=== PATIENT | female | born 1970 | race Caucasian/White ===

== ENCOUNTER 2016-12-04 21:38 | Observation (INO) | payer MEDICAID ==
[~2016-12-04] VITALS: Ht 170.2 cm; Wt 135.9 kg
[~2016-12-04 21:38] MED LIST: HYDR-3533 PO; PROT40TA PO; ZOFR4TAB3 SL
[2016-12-04 21:52] VITALS: BP 111/69; PULSE 107; RESP 22; TEMP 98; O2SAT 98
[2016-12-04 21:59] VITALS: BP_SYST 111; BP_SYST 148; BP_DIAS 69; BP_DIAS 82; PULSE 101; RESP 22; O2SAT 98
[2016-12-04] MEDS ORDERED: SODIUM CHLORIDE 0.9% FLUSH 5 ML FLUSH IVF PRN (22:00)
[2016-12-04] MEDS ORDERED: ONDANSETRON HCL 4 MG/2 ML VIAL IV PUSH ONE ×2 (22:00→22:45)
[2016-12-04 22:02] VITALS: BP 132/90; PULSE 94; RESP 22; O2SAT 98
[2016-12-04 22:10] LABS: BASOPHIL # 0.2 TH/MM3 (0-0.2); BASOPHIL % 1.6 % (0.0-2.0); EOSINOPHIL # 0.4 TH/MM3 (0-0.4); HEMATOCRIT 39.5 % (35.0-46.0); LYMPH % 26.5 % (9.0-44.0); LYMPHOCYTE # 3.3 TH/MM3 (1.0-4.8); MEAN CELL VOLUME 85.7 FL (80.0-100.0); MEAN CORPUSCULAR HEMOGLOBIN 28.3 PG (27.0-34.0); MONO % 5.9 % (0.0-8.0); PLATELET COUNT 550 TH/MM3 (150-450); RED BLOOD COUNT 4.61 MIL/MM3 (4.00-5.30); RED CELL DISTRIBUTION WIDTH 13.6 % (11.6-17.2); WHITE BLOOD COUNT 12.6 TH/MM3 (4.0-11.0)
[2016-12-04] MEDS: NITROGLYCERIN 0.4 MG SL 25 TABS/BTL SL SCH ×3 (22:10→22:23)
[2016-12-04] MEDS: SODIUM CHLOR 0.9% 1000 ML INJ 1,000 ML IV SCH (22:14)
[2016-12-04] MEDS ORDERED: ASPIRIN 81 MG CHEW TAB CHEW ONE (22:15)
[2016-12-04 22:22] LABS: CHLORIDE 105 MEQ/L (98-107); SODIUM (NA) 141 MEQ/L (136-145)
[2016-12-04 22:26] LABS: ANION GAP 8 MEQ/L (5-15); BICARBONATE 27.6 MEQ/L (21.0-32.0); MAGNESIUM 1.9 MG/DL (1.5-2.5)
[2016-12-04 22:27] VITALS: BP 142/73; PULSE 104; RESP 20; O2SAT 99
[2016-12-04 22:27] LABS: APTT (PATIENT) 27.1 SEC (24.3-30.1); BLOOD UREA NITROGEN 11 MG/DL (7-18); INTERNATIONAL NORMALIZED RATIO 0.9 RATIO; PROTHROMBIN TIME - PATIENT 10.2 SEC (9.8-11.6)
[2016-12-04 22:28] LABS: HEMO FLAGS DIFF FINAL
[2016-12-04 22:29] LABS: ALT (GPT) 17 U/L (10-53); AST (GOT) 14 U/L (15-37); GLOMERULAR FILTRATION RATE 89 ML/MIN (>89)
[2016-12-04 22:31] LABS: TOTAL BILIRUBIN ADULT 0.2 MG/DL (0.2-1.0)
[2016-12-04 22:32] LABS: ALKALINE PHOSPHATASE 120 U/L (45-117)
[2016-12-04 22:38] LABS: CREATINE KINASE 48 U/L (26-192); POTASSIUM 3.8 MEQ/L (3.5-5.1)
[2016-12-04] MEDS ORDERED: PANTOPRAZOLE SODIUM 40 MG VIAL IV PUSH ONE (22:45)
[2016-12-04] MEDS ORDERED: HYDROmorphone HCL PF 1 MG/ML VIAL IV PUSH ONE (22:45)
[2016-12-04 23:00] VITALS: BP 132/74; PULSE 94; RESP 20; O2SAT 99
[2016-12-04 23:28] VITALS: BP 129/70; PULSE 88; RESP 20; O2SAT 97
[2016-12-04] MEDS ORDERED: IOHEXOL 350 MG/ML 10 ML VIAL (for RAD DIAG) IV ONE (23:53)
[2016-12-05] VITALS (10 sets, daily range): BP systolic 121–139; BP diastolic 61–77; PULSE 72–88; RESP 16–20; TEMP 97.6; O2SAT 95–99
--- NOTE | 2016-12-05 00:11 | RADHPO ---
EXAM DATE/TIME: 12/04/2016 23:21 [facility] COMPARISON: No previous studies available for comparison. INDICATIONS : Chest pain / short of breath. MEDICAL HISTORY : None. SURGICAL HISTORY : Tubal ligation. section. ENCOUNTER: Initial ACUITY: 1 day PAIN SCORE: 7/10 LOCATION: Bilateral chest FINDINGS: The cardiac silhouette is enlarged in transverse diameter. The lungs are free of acute parenchymal op acity. No effusions are identified. Osseous structures are intact. CONCLUSION: Cardiomegaly. No acute cardiopulmonary disease. Rodriguez Singh MD on December 05, 2016 at 0:09 Board Certified Radiologist. This report was verified electronically.
--- NOTE | 2016-12-05 00:28 | RADHPO ---
EXAM DATE/TIME: 12/04/2016 23:53 [facility] COMPARISON: No previous studies available for comparison. INDICATIONS : Chest pain with shortness of breath. IV CONTRAST: 100 cc Omnipaque 350 (iohexol) IV ; Cumulative dose for multiple exams. RADIATION DOSE: 25.46 CTDIvol (mGy) MEDICAL HISTORY : Hypertension. SURGICAL HISTORY : None. ENCOUNTER: Initial ACUITY: 1 day PAIN SCALE: 5/10 LOCATION: chest TECHNIQUE: Volumetric scanning of the chest was performed using a pulmonary embolism protocol MIP images were re constructed. Using automated exposure control and adjustment of the mA and/or kV according to patien t size, radiation dose was kept as low as reasonably achievable to obtain optimal diagnostic quality images. FINDINGS: Examination of the pulmonary vasculature demonstrates good filling of the main, lobar and segmental b ranches. There are no filling defects to suggest pulmonary embolism. Multiplanar reconstructions are also unremarkable. Examination of the lung mcguire demonstrates no evidence of pulmonary nodule. No pleural fluid is iden tified. Examination of the mediastinum demonstrates no abnormally enlarged lymph nodes by CT criteria . No axillary or hilar abnormalities are identified. Coronary artery calcifications are not present. CONCLUSION: 1. No evidence of pulmonary embolism. Rodriguez Singh MD on December 05, 2016 at 0:24 Board Certified Radiologist. This report was verified electronically.
--- NOTE | 2016-12-05 00:39 | RADHPO ---
EXAM DATE/TIME: 12/04/2016 23:53 [facility] COMPARISON: No previous studies available for comparison. INDICATIONS : Right upper quadrant pain. IV CONTRAST: 100 cc Omnipaque 350 (iohexol) IV ; Cumulative dose for multiple exams. ORAL CONTRAST: No oral contrast ingested. RADIATION DOSE: 24.7 CTDIvol (mGy) MEDICAL HISTORY : None SURGICAL HISTORY : Tubal ligation. Right hip replacement. ENCOUNTER: Initial ACUITY: 1 day PAIN SCALE: 7/10 LOCATION: Right upper quadrant TECHNIQUE: Volumetric scanning of the abdomen and pelvis was performed. Using automated exposure control and ad justment of the mA and/or kV according to patient size, radiation dose was kept as low as reasonably achievable to obtain optimal diagnostic quality images. FINDINGS: Examination of the lung bases demonstrates no abnormality. No pleural fluid is identified. No pulmona ry nodules are present. There is eventration of the right hemidiaphragm. The liver and spleen are nor mal in size and no focal defects are identified. The gallbladder and pancreas are unremarkable. No in trahepatic or extrahepatic ductal dilatation is seen. The adrenal glands and kidneys appear normal bi laterally. No hydronephrosis or mass lesions are identified. No abnormally enlarged lymph nodes are i dentified. Examination of the pelvis demonstrates no evidence of free fluid or pelvic mass. No abnormally enlarg ed inguinal or retroperitoneal lymph nodes are present. The bladder is unremarkable. CONCLUSION: 1. No evidence of acute abdominal or pelvic process. No masses are identified. Rodriguez Singh MD on December 05, 2016 at 0:31 Board Certified Radiologist. This report was verified electronically.
[2016-12-05] MEDS ORDERED: METOCLOPRAMIDE HCL 10 MG/2 ML VIAL IV PUSH ONE (00:45)
[2016-12-05] MEDS: SODIUM CHLOR 0.9% 1000 ML INJ 1,000 ML IV SCH (00:54)
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
[2016-12-05] MEDS ORDERED: NITROGLYCERIN 0.4 MG SL 25 TABS/BTL SL PRN (01:15)
[2016-12-05] MEDS ORDERED: ONDANSETRON HCL 4 MG/2 ML VIAL IV PRN (01:15)
[2016-12-05] MEDS ORDERED: MORPHINE SULFATE 4 MG/ML INJ IV PRN (01:15)
[2016-12-05] MEDS ORDERED: ALPRAZolam 0.25 MG TAB PO PRN (01:15)
[2016-12-05] MEDS ORDERED: SODIUM CHLORIDE 0.9% FLUSH 5 ML FLUSH IVF PRN ×2 (01:15)
[2016-12-05 03:34] LABS: CREATINE KINASE 23 U/L (26-192)
[2016-12-05 05:46] LABS: CREATINE KINASE 23 U/L (26-192)
[2016-12-05 08:05] LABS: AUTOMATED NEUTROPHIL # 9.1 TH/MM3 (1.8-7.7); BASOPHIL % 0.4 % (0.0-2.0); EOSINOPHIL # 0.1 TH/MM3 (0-0.4); EOSINOPHIL % 0.5 % (0.0-4.0); HEMATOCRIT 36.1 % (35.0-46.0); HEMO FLAGS DIFF FINAL; LYMPH % 16.5 % (9.0-44.0); LYMPHOCYTE # 1.9 TH/MM3 (1.0-4.8); MEAN CELL VOLUME 85.9 FL (80.0-100.0); MEAN CORPUSCULAR HEMOGLOBIN 27.9 PG (27.0-34.0); MEAN CORPUSCULAR HGB CONC 32.5 % (32.0-36.0); MONO % 3.9 % (0.0-8.0); NEUT % 78.7 % (16.0-70.0); PLATELET COUNT 498 TH/MM3 (150-450); WHITE BLOOD COUNT 11.5 TH/MM3 (4.0-11.0)
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
[2016-12-05 08:21] LABS: BETA HCG QUANT LESS THAN 1 MIU/ML (0-5)
[2016-12-05] MEDS ORDERED: PANTOPRAZOLE SOD 40 MG DELAYED RELEASE TAB PO SCH (09:00)
[2016-12-05] MEDS ORDERED: SODIUM CHLORIDE 0.9% FLUSH 5 ML FLUSH IVF SCH ×2 (09:00)
[2016-12-05] MEDS ORDERED: REGADENOSON INJ 0.4 MG/5 ML SYR IV ONE (10:05)
--- NOTE | 2016-12-05 11:31 | RADHPO ---
EXAM DATE/TIME: 12/05/2016 10:25 [facility] COMPARISON: CHEST SINGLE AP, December 04, 2016, 23:21. INDICATIONS : Susbternal chest pain with dyspnea and nausea. Angina. Abnormal EKG. DOSE: 35 mCi Tc99m Myoview at stress. 11 mCi Tc99m Myoview at rest. 0.4 mg Lexiscan STRESS SYMPTOMS: Nausea and heart racing. EJECTION FRACTION: 52% MEDICAL HISTORY : Cardiomegaly. SURGICAL HISTORY : Tubal ligation. section. Right hip replacement. ENCOUNTER: Initial ACUITY: 1 day PAIN SCALE: 6/10 LOCATION: Substernal chest TECHNIQUE: The patient underwent pharmacologic stress with infusion of prescribed dose. Continuous ECG tracing was monitored during stress. Gated SPECT imaging was performed after stress and conventional SPECT i maging was performed at rest. The examination was performed on a SPECT/CT scanner, both attenuation and non-corrected datasets were reviewed. FINDINGS: DISTRIBUTION: The maximum perfused segment at stress is in the anterior wall. PERFUSION STUDY: The pattern of perfusion at stress is within normal limits. GATED STUDY: There is intact wall motion and thickening without hypokinetic or dyskinetic segments. CONCLUSION: 1. No fixed or reversible defects to suggest ischemia or infarction. 2. Normal wall motion and calculated ejection fraction. RISK CATEGORY: Low (<1% Annual Mortality Rate) Edmond Arthur MD on December 05, 2016 at 11:25 Board Certified Radiologist. This report was verified electronically.
--- NOTE | 2016-12-05 13:27 | HHI.DCPOC ---
Discharge Care Plan Diagnosis: (1) Chest pain (2) Abdominal pain (3) Leukocytosis Your Health Problems Are: Chest Pain Goals to Promote Your Health * To prevent worsening of your condition and complications * To maintain your health at the optimal level Directions to Meet Your Goals Take your medications as prescribed Follow your dietary instruction Follow activity as directed Keep your appointments as scheduled Take your immunizations and boosters as scheduled If your symptoms worsen call your PCP, if no PCP go to Urgent Care Center or Emergency Room Smoking is Dangerous to Your Health. Avoid second hand smoke Call the 24-hour hour crisis hotline for domestic abuse at Ciera Jacobs Dec 05, 2016 13:27
--- NOTE | 2016-12-05 15:43 | TR ---
Date Performed: 12/05/2016 Time Performed: 10:29:26 DOCTOR: Rodriguez Hernandez DRUG LIST: CLINICAL HISTORY: CHEST PAIN REASON FOR TEST: Chest pain. REASON FOR ENDING: OBSERVATION: CONCLUSION: Lexiscan stress test was performed under standard four minute protocol. Radionuclid e was injected one minute prior to ending the test. No electrocardiographic abormalities were present to suggest ischemia. Nuclear imaging and interpretation are pending. COMMENTS:
[2016-12-05] MEDS ORDERED: INFLUENZA VIRUS VACCINE (QUADRIVALENT) 0.5 ML SYR IM ONE (16:00)
[2016-12-05] MEDS ORDERED: PNEUMOCOCCAL POLYVALENT INJ 25 MCG/0.5 ML SYR IM ONE (16:00)
--- NOTE | 2016-12-06 08:17 | EKG ---
Date Performed: 12/04/2016 Time Performed: 21:44:20 PTAGE: 46 years EKG: Sinus tachycardia Leftward axis Left ventricular hypertrophy by voltage only Nonspecific an terior T wave changes Abnormal ECG NO PREVIOUS TRACING DOCTOR: Rodriguez Hernandez Interpretating Date/Time 12/06/2016 08:15:15
--- NOTE | 2016-12-06 08:17 | EKG ---
Date Performed: 12/04/2016 Time Performed: 23:44:42 PTAGE: 46 years EKG: Sinus rhythm Leftward axis Left ventricular hypertrophy by voltage only Compared to previous tracing, nonspecific T wave changes have resolved. Abnormal ECG PREVIOUS TRACING : 12/04/2016 21.44.20 DOCTOR: Rodriguez Hernandez Interpretating Date/Time 12/06/2016 08:15:42
--- NOTE | 2016-12-06 08:36 | EKG ---
Date Performed: 12/05/2016 Time Performed: 01:19:52 PTAGE: 46 years EKG: Sinus rhythm Leftward axis Left ventricular hypertrophy by voltage only Abnormal ECG PREVIOUS TRACING : 12/04/2016 23.44 Compared to prior tracing no significant change DOCTOR: Rodriguez Hernandez Interpretating Date/Time 12/06/2016 08:35:16
--- NOTE | 2016-12-06 08:36 | EKG ---
Date Performed: 12/05/2016 Time Performed: 04:52:50 PTAGE: 46 years EKG: Sinus rhythm Leftward axis Left ventricular hypertrophy by voltage only Inferior T wave changes are nonspecific A bnormal ECG PREVIOUS TRACING : 12/05/2016 01.19 Compared to prior tracing no significant change DOCTOR: Rodriguez Hernandez Interpretating Date/Time 12/06/2016 08:35:08
== END 2016-12-05 16:20 | disposition home or self-care (01) ==
LOC: PHED 21:38 → PHEDA 12-05 01:05 → PHICU 12-05 05:22 → PH3A 12-05 09:02
PROVIDERS: ADMIT Family Medicine; ATTEND Family Medicine
DX: R07.9 Chest pain, unspecified (principal); R00.0 Tachycardia, unspecified; I51.7 Cardiomegaly; D72.829 Elevated white blood cell count, unspecified; R94.31 Abnormal electrocardiogram [ECG] [EKG]; Z78.0 Asymptomatic menopausal state; Z96.641 Presence of right artificial hip joint; Z23 Encounter for immunization
CPT/HCPCS: 71010; 71275; 74177; 78452; 80053; 82550; 83690; 83735; 84484; 84702; 85025; 85379; 85610; 85730; 90471; 90686; 90732; 93005; 93017; 96374; 96375; 96376; 99285; A9502; C9113; G0378; J1170; J2270; J2405; J2765; J2785; J7030; Q9967; G0008; G0009; Q2038

== ENCOUNTER 2017-09-28 18:39 | Emergency (ER) | payer MEDICAID ==
[~2017-09-28] VITALS: Ht 170.2 cm; Wt 138.0 kg
[2017-09-28 18:42] VITALS: BP_SYST 137; BP_SYST 148; BP_DIAS 79; BP_DIAS 87; PULSE 102; PULSE 107; RESP 16; TEMP 98.5; TEMP 98.6; O2SAT 100; O2SAT 95
[2017-09-28] MEDS ORDERED: SODIUM CHLORIDE 0.9% FLUSH 10 ML FLUSH IV FLUSH PRN (19:15)
[2017-09-28] MEDS ORDERED: ONDANSETRON HCL 4 MG/2 ML VIAL IV PUSH ONE (19:15)
[2017-09-28] MEDS ORDERED: MORPHINE SULFATE 4 MG/ML INJ IV ONE (19:15)
--- NOTE | 2017-09-28 19:17 | PD ---
HPI . Abdominal pain Chief Complaint: Abdominal Pain Time Seen by Provider: 19:14 Travel History International Travel<30 days: No Contact w/Intl Traveler<30days: No Traveled to known affect area: No History of Present Illness HPI Has presents with chief complaint of right lower quadrant abdominal pain. Onset was yesterday. Pain is exacerbated by coughing and laughing. Pain is rated 8/10. She reports nausea for the last 3 days. She also reports poor appetite. She denies any urinary tract symptoms. PFSH Past Medical History Heart Rhythm Problems: No Cardiac Catheterization: No Cardiovascular Problems: Yes (chest pain) High Cholesterol: No Congestive Heart Failure: No Diabetes: No Diminished Hearing: No ?: Not LMP: 09/16/17 Tubal Ligation: Yes (2000 X2) Past Surgical History Section: Yes (1997, 2000) Coronary Artery Bypass Graft: No Genitourinary Surgery: Yes (URETHRA STRETCHED CHILD) Joint Replacement: Yes (RIGHT HIP REPLACEMENT) Social History Alcohol Use: No Tobacco Use: No Substance Use: No Allergies-Medications (Allergen,Severity, Reaction): Coded Allergies: Sulfa (Sulfonamide Antibiotics) (Unverified Allergy, Mild, HOT,HIVES, WEAKNESS,SOB, 09/28/17) shellfish derived (Unverified Allergy, Mild, HOT,HIVES, 09/28/17) pt decline this allergy HAD CT WITH IV CONTRAST AND HAD NO PROBLEM Reported Meds & Prescriptions Reported Meds & Active Scripts Active No Active Prescriptions or Reported Medications Review of Systems Except as stated in HPI: all other systems reviewed are Neg General / Constitutional: No: Fever, Chills Gastrointestinal: Positive: Nausea, Abdominal Pain, No: Vomiting, Diarrhea, Constipation Genitourinary: No: Urgency, Frequency, Dysuria Physical Exam Narrative GENERAL: Awake and alert. She is in no distress. SKIN: warm/dry. HEAD: Normocephalic. EYES: Pupils equal and round. No scleral icterus. No injection or drainage. ENT: No nasal bleeding or discharge. Mucous membranes pink and moist. NECK: Trachea midline. Full range of motion without pain.. CARDIOVASCULAR: Regular rate and rhythm. RESPIRATORY: No accessory muscle use. Clear to auscultation. Breath sounds equal bilaterally. GASTROINTESTINAL: Abdomen soft. Right lower quadrant tenderness. Bowel sounds present. Nondistended. MUSCULOSKELETAL: No obvious deformities. NEUROLOGICAL: Awake and alert. No obvious cranial nerve deficits. Motor grossly within normal limits. Normal speech. PSYCHIATRIC: Appropriate mood and affect; insight and judgment normal. Data Data Last Documented VS Vital Signs Date Time Temp Pulse Resp B/P (MAP) Pulse Ox O2 Delivery O2 Flow Rate FiO2 09/28/17 20:46 16 09/28/17 19:40 97 Room Air 09/28/17 18:42 98.5 102 148/87 (107) Orders Orders Basic Metabolic Panel (Bmp) (09/28/17 19:14) Complete Blood Count With Diff (09/28/17 19:14) Urinalysis - C+S If Indicated (09/28/17 19:14) Ct Abd/Pel W Iv Contrast(Rout) (09/28/17 19:14) Iv Access Insert/Monitor (09/28/17 19:14) Ecg Monitoring (09/28/17 19:14) Oximetry (09/28/17 19:14) Sodium Chloride 0.9% Flush (Ns Flush) (09/28/17 19:15) Ed Urine Pregnancytest Poc (09/28/17 19:14) Morphine Inj (Morphine Inj) (09/28/17 19:15) Ondansetron Inj (Zofran Inj) (09/28/17 19:15) Cath For Specimen (09/28/17 19:19) Iohexol 350 Inj (Omnipaque 350 Inj) (09/28/17 20:54) Hepatic Functional Panel (09/28/17 19:50) Lipase (09/28/17 19:50) Labs Laboratory Tests Test 09/28/17 19:50 White Blood Count 15.5 TH/MM3 Red Blood Count 4.58 MIL/MM3 Hemoglobin 13.0 GM/DL Hematocrit 38.7 % Mean Corpuscular Volume 84.4 FL Mean Corpuscular Hemoglobin 28.4 PG Mean Corpuscular Hemoglobin Concent 33.6 % Red Cell Distribution Width 13.4 % Platelet Count 498 TH/MM3 Mean Platelet Volume 7.9 FL Neutrophils (%) (Auto) 79.6 % Lymphocytes (%) (Auto) 13.4 % Monocytes (%) (Auto) 4.3 % Eosinophils (%) (Auto) 0.9 % Basophils (%) (Auto) 1.8 % Neutrophils # (Auto) 12.3 TH/MM3 Lymphocytes # (Auto) 2.1 TH/MM3 Monocytes # (Auto) 0.7 TH/MM3 Eosinophils # (Auto) 0.1 TH/MM3 Basophils # (Auto) 0.3 TH/MM3 CBC Comment DIFF FINAL Differential Comment Urine Color YELLOW Urine Turbidity CLEAR Urine pH 7.0 Urine Specific [place] 1.018 Urine Protein NEG mg/dL Urine Glucose (UA) NEG mg/dL Urine Ketones NEG mg/dL Urine Occult Blood LARGE Urine Nitrite NEG Urine Bilirubin NEG Urine Leukocyte Esterase NEG Urine RBC 50-99 /hpf Urine WBC 0-2 /hpf Urine Squamous Epithelial Cells 0-5 /hpf Urine Bacteria NONE /hpf Microscopic Urinalysis Comment CULT NOT INDICATED Blood Urea Nitrogen 13 MG/DL Creatinine 0.75 MG/DL Random Glucose 99 MG/DL Total Protein 8.1 GM/DL Albumin 3.4 GM/DL Calcium Level 8.9 MG/DL Alkaline Phosphatase 115 U/L Aspartate Amino Transf (AST/SGOT) 12 U/L Alanine Aminotransferase (ALT/SGPT) 20 U/L Total Bilirubin 0.3 MG/DL Direct Bilirubin 0.1 MG/DL Sodium Level 136 MEQ/L Potassium Level 3.9 MEQ/L Chloride Level 103 MEQ/L Carbon Dioxide Level 27.0 MEQ/L Anion Gap 6 MEQ/L Estimat Glomerular Filtration Rate 83 ML/MIN Indirect Bilirubin 0.2 MG/DL Lipase 70 U/L MDM Medical Decision Making Medical Screen Exam Complete: Yes Emergency Medical Condition: Yes Differential Diagnosis Differential diagnosis of abdominal pain includes but is not limited to gastritis, pancreatitis, hepatitis, gastroenteritis, gallbladder disease, constipation, urinary retention, UTI, peptic ulcer disease, diverticulitis or appendicitis Narrative Course Patient presents complaining with right lower quadrant abdominal pain. Labs, UA , test and CT of her abdomen are pending. She'll be treated with morphine and Zofran. CBC & BMP Diagram 09/28/17 19:50 Calcium Level 8.9 UA does show blood. LMP 09/16 so shouldn't be menstrual blood. CT: 1. Inflammatory changes surrounding the head of the pancreas with fluid extending inferiorly suggestive of acute pancreatitis. Correlation with amylase and lipase values is recommended for confirmation. Duodenitis is also the differential if pancreatic enzymes are not elevated. 2. Stable 12 mm low density lesion within the right lobe of the liver inferiorly which is too small for accurate density measurement. LFTs and lipase have subsequently been ordered. LFTs normal. Lipase 70. I will treat her with a proton pump inhibitor and Zofran. I will give her a referral to gastroenterology. Diagnosis Primary Impression: Abdominal pain Qualified Codes: R10.31 - Right lower quadrant pain Additional Impression: Duodenitis Referrals: Liset Ernandez MD Patient Instructions: Duodenitis (DC), General Instructions Med/Other Pt SpecificInfo: Prescription(s) given Scripts Ondansetron (Zofran) 4 Mg Tab 4 MG PO Q6HR Y for NAUSEA OR VOMITING, #10 TAB 0 Refills Prov: Kirsten Means MD 09/28/17 Omeprazole Magnesium (Prilosec) 20 Mg Tab 1 TAB PO DAILY, #30 Prov: Kirsten Means MD 09/28/17 Disposition: 01 DISCHARGE HOME Condition: Stable Kirsten Means MD Sep 28, 2017 19:17
[2017-09-28 19:40] VITALS: RESP 16; O2SAT 97
[2017-09-28 19:59] LABS: BLOOD, URINE LARGE (NEG); GLUCOSE,URINE NEG (NEG); KETONE, URINE NEG (NEG); NITRITE,URINE NEG (NEG)
[2017-09-28 20:01] LABS: AUTOMATED NEUTROPHIL # 12.3 TH/MM3 (1.8-7.7); BASOPHIL # 0.3 TH/MM3 (0-0.2); BASOPHIL % 1.8 % (0.0-2.0); EOSINOPHIL # 0.1 TH/MM3 (0-0.4); EOSINOPHIL % 0.9 % (0.0-4.0); HEMATOCRIT 38.7 % (35.0-46.0); HEMO FLAGS DIFF FINAL; LYMPH % 13.4 % (9.0-44.0); LYMPHOCYTE # 2.1 TH/MM3 (1.0-4.8); MEAN CELL VOLUME 84.4 FL (80.0-100.0); MEAN CORPUSCULAR HEMOGLOBIN 28.4 PG (27.0-34.0); MEAN CORPUSCULAR HGB CONC 33.6 % (32.0-36.0); MONO % 4.3 % (0.0-8.0); NEUT % 79.6 % (16.0-70.0); PLATELET COUNT 498 TH/MM3 (150-450); RED BLOOD COUNT 4.58 MIL/MM3 (4.00-5.30); RED CELL DISTRIBUTION WIDTH 13.4 % (11.6-17.2); WHITE BLOOD COUNT 15.5 TH/MM3 (4.0-11.0)
[2017-09-28 20:03] LABS: URINE COLOR YELLOW (YELLW/STRAW)
[2017-09-28 20:04] LABS: SQUAMOUS EPITHELIAL CELL URINE 0-5 /hpf (0-5); WBC, URINE 0-2 /hpf (0-5)
[2017-09-28 20:05] LABS: COMMENT (UR) CULT NOT INDICATED; CULTURE IF INDICATED CULT NOT INDICATED
[2017-09-28 20:16] LABS: POTASSIUM 3.9 MEQ/L (3.5-5.1)
[2017-09-28] MEDS ORDERED: IOHEXOL 350 MG/ML 10 ML VIAL (for RAD DIAG) IVCONTRAST ONE (20:54)
--- NOTE | 2017-09-28 21:04 | RADRPT ---
EXAM DATE/TIME: 09/28/2017 20:31 [facility] COMPARISON: CT ABDOMEN & PELVIS W CONTRAST, December 04, 2016, 23:53. INDICATIONS : Lower right abdominal pain with nausea and vomiting for 3 days IV CONTRAST: 96 cc Omnipaque 350 (iohexol) IV ORAL CONTRAST: No oral contrast ingested. RADIATION DOSE: 22.37 CTDIvol (mGy) MEDICAL HISTORY : None SURGICAL HISTORY : section. Tubal ligation.Right hip ENCOUNTER: Initial ACUITY: 3 days PAIN SCALE: 8/10 LOCATION: Right abdomen TECHNIQUE: Volumetric scanning of the abdomen and pelvis was performed. Using automated exposure control and ad justment of the mA and/or kV according to patient size, radiation dose was kept as low as reasonably achievable to obtain optimal diagnostic quality images. DICOM format image data is available electro nically for review and comparison. FINDINGS: LOWER LUNGS: The visualized lower lungs are clear. LIVER: There is a stable 12 mm low density lesion within the right lobe of the liver inferiorly which is too small for accurate density measurement. There is no dilation of the biliary tree. No calcified gall stones. SPLEEN: Normal size without lesion. PANCREAS: Inflammatory changes are noted surrounding the head of the pancreas. The findings raise possibility o f acute pancreatitis of the head. Correlation with amylase and lipase values is recommended. No pancr eatic mass is noted. Some fluid extends inferiorly below the duodenum. No pseudocyst is noted. No abs cess is noted. KIDNEYS: Normal in size and shape. There is no mass, stone or hydronephrosis. ADRENAL GLANDS: Within normal limits. VASCULAR: There is no aortic aneurysm. BOWEL/MESENTERY: The stomach, small bowel, and colon demonstrate no acute abnormality. There is no free intraperitone al air or fluid. ABDOMINAL WALL: Within normal limits. RETROPERITONEUM: There is no lymphadenopathy. BLADDER: No wall thickening or mass. REPRODUCTIVE: There is a 2.4 summary left ovarian cyst. INGUINAL: There is no lymphadenopathy or hernia. MUSCULOSKELETAL: Within normal limits for patient age. CONCLUSION: 1. Inflammatory changes surrounding the head of the pancreas with fluid extending inferiorly suggesti ve of acute pancreatitis. Correlation with amylase and lipase values is recommended for confirmation. Duodenitis is also the differential if pancreatic enzymes are not elevated. 2. Stable 12 mm low density lesion within the right lobe of the liver inferiorly which is too small f or accurate density measurement. Subhash Jang MD on September 28, 2017 at 20:57 Board Certified Radiologist. This report was verified electronically.
[2017-09-28 21:24] LABS: INDIRECT BILIRUBIN 0.2 MG/DL (0.0-0.8); TOTAL BILIRUBIN ADULT 0.3 MG/DL (0.2-1.0)
[2017-09-28] MEDS ORDERED: ZOFR4TAB PO (21:32)
[2017-09-28] MEDS ORDERED: PRIL20TA2 PO (21:32)
[2017-09-28 21:57] VITALS: BP 142/87; PULSE 76; RESP 16; O2SAT 98
[2017-09-28] MEDS ORDERED: diphenhydrAMINE HCL 50 MG/ML VIAL IV PUSH ONE (22:15)
[2017-09-28] MEDS ORDERED: PROCHLORPERAZINE INJ 10 MG/2 ML VIAL IV PUSH ONE (22:15)
== END 2017-09-28 22:45 | disposition home or self-care (01) ==
LOC: PHED 18:39
DX: R10.31 Right lower quadrant pain (principal); K29.80 Duodenitis without bleeding
CPT/HCPCS: 74177; 80048; 80076; 81001; 83690; 84703; 85025; 96374; 96375; 99285; J0780; J1200; J2270; J2405; P9612; Q9967